=== PATIENT | male | born 1945 | race Caucasian/White ===

== ENCOUNTER 2017-01-02 18:49 | Inpatient (IN) ==
[2017-01-02] MEDS ORDERED: Acetaminophen 325 MG TABLET PO PRN (23:12)
[2017-01-02] MEDS ORDERED: Naloxone 0.4 MG/ML INJ IVP PRN (23:27)
--- NOTE | 2017-01-02 23:37 | Internal Med History&Physical ---
<Cordell Nair - Last Filed: 01/03/17 00:35> Date of Encounter: 01/03/17 Time of Encounter: 23:37 Assessment and Plan (1) Encephalopathy acute Current visit: Yes Status: Acute Appears to have hepatic encephalopathy.Was recently admitted to [facility]. Lab work from [place] does not reveal any transaminitis, total bili , conjugated bili and unconjugated bili unremarkable, ammonia 45. CBC and CMP both unremarkable. The patient appears to be in encephalopathic state as he is obtunded and minimally responsive to painful stimuli. Repeat CMP, get an additional ammonia level and lactic acid. Stat ABG Stat blood glucose Every 6 Accu-Cheks Stat TSH Stat urine tox screen, urine tox screen artery obtained and also [place] only revealing TCAs Stat ammonia Stat CBC and CMP, stat CPK Stat Lactic acid Stat serum alcohol Continuous telemetry We will hold all by mouth meds for now, change Synthroid and Lasix to IV doses (2) Cirrhosis of liver Current visit: Yes Status: Acute Reported history of cirrhosis. Was recently admitted to [facility]. Lab work from [place] does not reveal any transaminitis, total bili , conjugated bili and unconjugated bili unremarkable, ammonia 45. He does not appear jaundiced, no obvious hepatomegaly. The patient appears to be in encephalopathic state as he is obtunded and minimally responsive to painful stimuli. Repeat CMP, get an additional ammonia level and lactic acid. Qualifiers: Hepatic cirrhosis type: unspecified hepatic cirrhosis Ascites presence: without ascites Qualified Code(s): K74.60 - Unspecified cirrhosis of liver (3) Thrombocytopenia Current visit: Yes Status: Acute Likely caused by cirrhosis. No bleeding or petechial hemorrhaging noted. CBC in the morning (4) Dementia Current visit: Yes Status: Acute Baseline dementia with confusion, patient continues to have mental decline as per report. Consult neurology for further workup and evaluation. Dayshift team to call neurology Qualifiers: Alzheimer's disease onset: unspecified onset Dementia behavioral disturbance: with behavioral disturbance Qualified Code(s): G30.8 - Other Alzheimer's disease; F02.81 - Dementia in other diseases classified elsewhere with behavioral disturbance; F02.81 - Dementia in other diseases classified elsewhere with behavioral disturbance; F02.81 - Dementia in other diseases classified elsewhere with behavioral disturbance (5) Diabetes mellitus Current visit: Yes Status: Chronic History of type 2 diabetes, it is unknown whether or not he is controlled. Takes metformin at home will hold for now due to decreased level of consciousness. I will hold sliding scale insulin coverage as the patient is nothing by mouth. Q6 hour Accu-Cheks while nothing by mouth Qualifiers: Diabetes mellitus type: type 2 Diabetes mellitus complication status: without complication Diabetes mellitus fci insulin use: without fci use Qualified Code(s): E11.9 - Type 2 diabetes mellitus without complications (6) HTN (hypertension) Current visit: Yes Status: Acute history of HTN, BP stable at this time. Will hold BB d/t sinus bradycardia. Qualifiers: Hypertension type: essential hypertension Qualified Code(s): I10 - Essential (primary) hypertension (7) Hypothyroidism Current visit: Yes Status: Acute New patient no prior visits to [facility] so there is no prior records for review. TSH obtained and was WNL at 1.790. Since the patient is somnolent I will change his synthroid to IV. Qualifiers: Hypothyroidism type: unspecified Qualified Code(s): E03.9 - Hypothyroidism , unspecified (8) DVT prophylaxis Current visit: Yes Status: Acute Mechanical sequential compression devices, on starting subcutaneous heparin or Lovenox the patient is thrombocytopenic Internal Medicine - H&P: HPI Chief complaint: AMS, dementia, decreased LOC Admitted From: Home Plans for Post Hospital Care: Home History of present illness: Mr. Duran is a 71 year old male with a past medical history of dementia, HTN, COPD, DM II, who presents today [facility] with acute mental status change and decreased level of consciousness. The patient was recently admitted and treated at [facility] for hepatic encephalopathy and cirrhosis. Patient is obtunded and there is no family present at bedside. All information obtained from chart review and RN report. The patient has baseline dementia, his awoke this morning and found furniture scattered throughout the house and patient missing. She found him outside sleeping on the porch. Upon arrival to [facility] ED it was reported to the RN that the patient was alert and oriented. However, at some time throughout the stay he became agitated and combative. He was given 2mg Ativan and sent to [facility]. Workup from [facility] included CT of head which found moderate generalized cerebral and cerebellar atrophy, and complete opacification of right maxillary sinus suspicious for fungal infection. Because the patient was found down a CT of the C-spine was obtained and no fractures were noted. X-ray pelvis and x- ray of left elbow obtained noting no fractures. Chest X-ray negative for acute findings. He is being admitted for further monitoring and evaluation. Past Med Surg Social Fam HX - Past Medical History Psychiatric history: PTSD - Social History Smoking Status: Current every day smoker Alcohol use: none Drug use: none - Family History Mother Adopted: No Twin of Family Member: Yes, Fraternal Living Status: Age at : 89 Cause of : alzhemiers Hx Family Cardiac Disorders: Yes (bipass, stents) Hx Family Respiratory Disorders: No Hx Family Cancer: Yes (breast,) Hx Family GI Disorders: No Hx Family Genitourinary Disorders: No Hx Family Endocrine Disorder: No Hx Family Musculoskeletal Disorders: No Hx Family Neuromuscular Disorders: No Hx Family Neurologic Disorders: No Hx Family HEENT Disorders: No Hx Family Autoimmune Disorders: No Hx Family Reproductive Disorders: No Hx Family Psychosocial Disorders: No Hx Family Medical Disorders: No Internal Medicine - H&P: Meds Acetaminophen [Tylenol] 650 mg PO TID PRN 01/02/17 [History] Baclofen [Lioresal] 10 mg PO TID PRN 01/02/17 [History] Dicyclomine [Bentyl] 20 mg PO TID PRN 01/02/17 [History] Doxazosin [Cardura] 1 mg PO HS 01/02/17 [History] Ferrous Sulfate [Iron] 325 mg PO BID 01/02/17 [History] Finasteride [Proscar] 20 mg PO DAILY 01/02/17 [History] Furosemide [Lasix] 20 mg PO DAILY 01/02/17 [History] Gabapentin [Neurontin] 1,200 mg PO TID 01/02/17 [History] Gemfibrozil [Lopid] 600 mg PO BIDWM 01/02/17 [History] Levothyroxine [Synthroid] 0.05 mg PO 01/02/17 [History] Magnesium Oxide [Magnesium] 400 mg PO BID 01/02/17 [History] Metformin HCl [Fortamet] 500 mg PO DAILY 01/02/17 [History] OLANZapine [Zyprexa] 2.5 mg PO DAILY 01/02/17 [History] Pantoprazole Sodium [Protonix] 20 mg PO DAILY 01/02/17 [History] Peg 400/Hypromellose/Glycerin [Visine Tired Eye Relief Drop] 15 ml OP TID [History] Propranolol HCl 20 mg PO TID 01/02/17 [History] Ranitidine HCl [Acid Field Map Technician] 150 mg PO BID 01/02/17 [History] 3 Allergy/AdvReac Type Severity Reaction Status Date / Time amitriptyline Allergy Hallucinati Verified 01/02/17 22:49 ng citalopram Allergy Hallucinati Verified 01/02/17 22:49 ng fluoxetine Allergy Hallucinati Verified 01/02/17 22:49 ng morphine Allergy Hallucinati Verified 01/02/17 22:49 ng ROS unobtainable: due to mental status All Systems PM: A 10-system review of systems was performed and is negative for pertinent findings except as documented above in the HPI. - Constitutional Vitals: Temp Pulse Resp BP Pulse Ox 98.0 F 52 18 129/78 100 01/02/17 21:17 01/02/17 21:17 01/02/17 21:17 01/02/17 21:17 01/02/17 21:17 Exam: The patient is obtunded - Head Head exam: Present: atraumatic, normocephalic - Eye Eye exam: Present: PERRL, conjuntiva pink, sclera anicteric. Absent: periorbital swelling, periorbital tenderness Pupils: Present: PERRL - Neck Neck exam general surgery: Present: supple, trachea midline. Absent: lymphadenopathy - Respiratory Respiratory exam: Present: CTAB. Absent: accessory muscle use, rales, rhonchi, wheezes - Cardiovascular Cardiovascular exam: Present: RRR, +S1, +S2. Absent: diastolic murmur, gallop, rubs, systolic murmur - GI/Abdominal GI/Abdominal exam: Present: soft, tenderness (Mild tenderness to RUQ, patient whinces to pain.). Absent: distended, firm, guarding - Extremities Exam Extremities exam: Present: warm, radial pulses palpable and symmetrical. Absent : calf tenderness, cyanotic, pedal edema - Neurological Exam Neurological exam: Present: altered - Expanded Neurological Exam Neurological exam expanded: Present: protecting the airway Patient oriented to: Absent: person, place, time Cranial Nerves: tongue deviation PM: Normal Coma Scale Eye Opening: None Coma Scale Motor Response: Localizes to Pain Coma Scale Verbal Response: Incomprehensible Coma Scale Total: 8 - Skin Skin exam: Present: abrasion (to left knee.), dry Internal Med - H&P Results - Diagnostic Studies CT scan - head Additional comments: CT head from ulcer reveals moderate generalized cerebral and cerebellar atrophy. CT C spine no fractures Other Images Additional comments: X-ray pelvis and left elbow negative for fractures <Fco Boswell - Last Filed: 01/03/17 05:05> Date of Encounter: 01/03/17 Time of Encounter: 03:20 ROS unobtainable: due to mental status (unable to obtain) - Constitutional Vitals: Temp Pulse Resp BP Pulse Ox 97.9 F 54 16 94/60 98 01/03/17 04:20 01/03/17 04:20 01/03/17 04:20 01/03/17 04:20 01/03/17 00:30 Exam: On my exam, patient responds to loud verbal and painful stimuli appropriately. He drifts off to sleep thereafter, but he pushes me away with painful stimuli. - Head Head exam: Present: atraumatic - Expanded Head Exam Head exam expanded: Absent: abrasion, contusion, general tenderness - Eye Eye exam: Present: PERRL. Absent: scleral icterus - ENT ENT exam: Present: mucous membranes dry, normal exam - Neck Neck exam general surgery: Present: supple. Absent: tenderness - Respiratory Respiratory exam: Present: CTAB - Cardiovascular Cardiovascular exam: Present: RRR, +S1, +S2 - GI/Abdominal GI/Abdominal exam: Present: normal bowel sounds, soft. Absent: hepatomegaly, mass, splenomegaly, tenderness - Extremities Exam Extremities exam: Present: warm. Absent: calf tenderness, pedal edema, tenderness - Back Exam Back exam: Absent: CVA tenderness (L), CVA tenderness (R) - Neurological Exam Neurological exam: Present: altered Additional comments: somnolent but arousable to pain and loud stimuli - Skin Skin exam: Present: dry, warm. Absent: rash Internal Med - H&P Results - Labs CBC & Chem 7: 01/03/17 00:31 01/03/17 00:31 Labs: Short CBC 01/03/17 Range/Units 00:31 WBC 5.2 (4.3-11.1) K/mcL Hgb 11.5 L (12.9-16.9) g/dL Hct 34.1 L (37.5-50.1) % Plt Count 68 L (140-400) K/mcL Neutrophils # 3.2 (1.6-8.9) K/mcL BMP 01/03/17 00:31 Sodium 144 Potassium 4.1 Chloride 113 H Carbon Dioxide 21 BUN 17 Creatinine 1.01 Glucose 108 H Calcium 8.8 Liver Function 01/03/17 Range/Units 00:31 Total Bilirubin 0.9 (0.2-1.2) mg/dL AST 14 (5-34) Units/L ALT 6 (0-55) Units/L Alkaline Phosphatase 71 (38-126) Units/L Albumin 2.9 L (3.5-5.0) g/dL - ABG Interpretation ABG results: 01/02/17 23:50 ABG pH 7.35 ABG pCO2 42 ABG pO2 109 H ABG HCO3 23 ABG Total CO2 24 ABG O2 Saturation 98 ABG Base Excess -3 L - Attending Attestation I discussed the patient NINILCHIK, PMH, ROS, lab data, and exam findings with Cordell Nair CNP. I reviewed the CT report with him and [facility] records as well. Patient has never been here before, and we have no old records. His is not present and I'm unable to obtain any history from patient. He does respond appropriately to loud and painful stimuli. He is not jaundiced. I was informed also that patient received a dose of Ativan prior to transfer from [facility]. He has stable vitals and glucose reading. We will try to obtain a urine sample for U/A, culture, and toxicity screen. We will minimize his mind altering medications and follow him closely. He does not appear to be infected at this time, unless his urinalysis reveals pertinent findings. Urine yet to be collected, however. Patient may need further imaging and/or work-up once his is available to discuss further. Other than my comments above and noted exam findings, I agree with Cordell's assessment and plan.
[2017-01-02 23:54] LABS: ABG Base Excess -3 mEq/L (-2 to 3); ABG HCO3 23 mEq/L (21-27); ABG Oxygen Saturation 98 % (95-98); ABG PCO2 42 mmHg (35-45); ABG PH 7.35 pH Units (7.32-7.45); ABG PO2 109 mmHg (85-104); ABG TCO2 24 mEq/L (20-26)
--- NOTE | 2017-01-03 00:39 | Event Note ---
Date of Encounter: 01/03/17 Time of Encounter: 00:39 No need to consult neurology, order discontinued
[2017-01-03 00:42] LABS: Basophils % 0.8 %; Eosinophils # 0.1 K/mcL (0.0-0.6); Eosinophils % 1.2 %; Hematocrit 34.1 % (37.5-50.1); Hemoglobin 11.5 g/dL (12.9-16.9); Immature Granulocytes % 0.2 % (0-4); Immature Platelets 5.7 % (1.1-6.1); Lymphocytes # 1.3 K/mcL (0.6-4.6); Lymphocytes % 25.6 %; Mean Corpuscular HGB Conc 33.7 g/dL (31.6-35.5); Mean Corpuscular Hemoglobin 33.4 pg (28.0-33.3); Mean Corpuscular Volume 99.1 fL (83.0-100.0); Mean Platelet Volume 10.4 fL (9.4-12.4); Monocytes # 0.6 K/mcL (0.0-1.3); Monocytes % 11.3 %; Red Blood Count 3.44 M/mcL (4.19-5.50); Red Cell Distribution Width 13.1 % (11.5-14.5); Segmented Neutrophils % 60.9 %
[2017-01-03 00:44] LABS: Neutrophils # 3.2 K/mcL (1.6-8.9); Platelet Count 68 K/mcL (140-400)
[2017-01-03 00:53] LABS: Magnesium 1.8 mg/dL (1.6-2.6)
[2017-01-03 00:57] LABS: Alanine Aminotransferase 6 Units/L (0-55); Albumin 2.9 g/dL (3.5-5.0); Albumin/Globulin Ratio 0.9 (1.1-2.2); Alkaline Phosphatase 71 Units/L (38-126); Aspartate Amino Transferase 14 Units/L (5-34); BUN/Creatinine Ratio 17 (6-26); Bilirubin,Total 0.9 mg/dL (0.2-1.2); Blood Urea Nitrogen 17 mg/dL (8-26); Calcium 8.8 mg/dL (8.6-10.8); Carbon Dioxide 21 mEq/L (19-29); Chloride 113 mEq/L (98-109); Creatine Kinase 112 Units/L (30-200); Globulin 3.3 g/dL (2.4-3.5); Glucose 108 mg/dL (70-99); Osmolality,Calculated 300 (280-300); Potassium 4.1 mEq/L (3.5-4.5); Sodium 144 mEq/L (136-145); Total Protein 6.2 g/dL (6.0-8.3); eGFR For African Americans > 60 (> 60); eGFR For Non-African Americans > 60 (> 60)
[2017-01-03 01:12] LABS: Platelet Estimate Decreased (Normal)
[2017-01-03 01:30] LABS: Ethanol < 10 mg/dL (0-10)
[2017-01-03] MEDS ORDERED: Levothyroxine Sodium 100 MCG VIAL IVP SCH (06:30)
[2017-01-03 08:21] LABS: Basophils % 0.8 %; Eosinophils # 0.1 K/mcL (0.0-0.6); Hematocrit 33.5 % (37.5-50.1); Hemoglobin 11.5 g/dL (12.9-16.9); Immature Granulocytes % 0.4 % (0-4); Lymphocytes # 1.2 K/mcL (0.6-4.6); Lymphocytes % 23.7 %; Mean Corpuscular HGB Conc 34.3 g/dL (31.6-35.5); Mean Corpuscular Hemoglobin 34.3 pg (28.0-33.3); Mean Platelet Volume 11.2 fL (9.4-12.4); Monocytes # 0.4 K/mcL (0.0-1.3); Monocytes % 8.8 %; Neutrophils # 3.2 K/mcL (1.6-8.9); Red Blood Count 3.35 M/mcL (4.19-5.50); Red Cell Distribution Width 13.2 % (11.5-14.5); Segmented Neutrophils % 65.3 %
[2017-01-03 08:22] LABS: Platelet Count 67 K/mcL (140-400)
[2017-01-03 08:23] LABS: BUN/Creatinine Ratio 18 (6-26); Blood Urea Nitrogen 15 mg/dL (8-26); Calcium 8.8 mg/dL (8.6-10.8); Carbon Dioxide 23 mEq/L (19-29); Chloride 113 mEq/L (98-109); Glucose 108 mg/dL (70-99); Osmolality,Calculated 293 (280-300); Potassium 4.1 mEq/L (3.5-4.5); Sodium 141 mEq/L (136-145); eGFR For African Americans > 60 (> 60); eGFR For Non-African Americans > 60 (> 60)
[2017-01-03] MEDS ORDERED: Furosemide 20 MG/2 ML VIAL IVP SCH (09:00)
[2017-01-03 11:13] LABS: Bilirubin,Urine Negative (Negative); Blood,Urine Small (Negative); Clarity,Urine Clear (Clear); Color,Urine Yellow (Yellow); Glucose,Urine (UA) Normal (Normal); Ketones,Urine Negative (Negative); Leukocyte Esterase,Urine Negative (Negative); Nitrite,Urine Negative (Negative); Protein,Urine Negative (Neg-Trace); Urobilinogen,Urine Normal (Normal)
[2017-01-03 11:14] LABS: Bacteria,Urine None Seen per hpf (None-Few); Hyaline Casts,Urine None Seen per lpf (None-Few); Squamous Epithelial Cell,Urine Few per lpf (None-Few); WBC,Urine 0-3 per hpf (0-3)
[2017-01-03 11:24] LABS: Amphetamine Screen,Urine Negative ng/mL (Cutoff=1000); Barbiturate Screen,Urine Negative ng/mL (Cutoff=200); Benzodiazepines Screen,Urine Negative ng/mL (Cutoff=200); Cannabinoid Screen,Urine Negative ng/mL (Cutoff = 50); Cocaine Screen,Urine Negative ng/mL (Cutoff= 300); Opiate Screen,Urine Negative ng/mL (Cutoff=300); Phencyclidine Screen,Urine Negative ng/mL (Cutoff=25)
[2017-01-03] MEDS: *HR* LORazepam 2 MG/ML VIAL IVP PRN ×2 (11:29→20:42)
[2017-01-03] MEDS ORDERED: Baclofen 10 MG TABLET PO PRN (14:38)
--- NOTE | 2017-01-03 14:44 | Internal Med Progress Note ---
Date of Encounter: 01/03/17 Time of Encounter: 14:41 - Assessment and plan (1) Encephalopathy acute Current Visit: Yes Status: Acute Assessment and plan: Consider possible concussion versus worsening dementia, recently treated for hepatic encephalopathy due to cirrhosis Use low dose of lactulose as the patient apparently has chronic diarrhea from short bowel Decrease dose of gabapentin Fall precautions, will probably need to go or rehabilitation [facility] (2) Right maxillary sinusitis Current Visit: Yes Status: Acute Assessment and plan: CT scan from also reported: moderate generalized cerebral and cerebellar atrophy , and complete opacification of right maxillary sinus suspicious for fungal infection. ENT consult Consider voriconazole versus other antifungal if this is confirmed, although the family says that he had an accident in the past and has had multiple abnormal CT scans showing something similar (3) Thrombocytopenia Current Visit: Yes Status: Acute Assessment and plan: Secondary to cirrhosis (4) Cirrhosis of liver Current Visit: Yes Status: Acute Qualifiers: Hepatic cirrhosis type: unspecified hepatic cirrhosis Ascites presence: without ascites Qualified Code(s): K74.60 - Unspecified cirrhosis of liver (5) Dementia Current Visit: Yes Status: Acute Qualifiers: Alzheimer's disease onset: unspecified onset Dementia behavioral disturbance: with behavioral disturbance Qualified Code(s): G30.8 - Other Alzheimer's disease; F02.81 - Dementia in other diseases classified elsewhere with behavioral disturbance; F02.81 - Dementia in other diseases classified elsewhere with behavioral disturbance; F02.81 - Dementia in other diseases classified elsewhere with behavioral disturbance (6) Diabetes mellitus Current Visit: Yes Status: Chronic Assessment and plan: Use insulin sliding scale Qualifiers: Diabetes mellitus type: type 2 Diabetes mellitus complication status: without complication Diabetes mellitus exterminator termite insulin use: without exterminator termite use Qualified Code(s): E11.9 - Type 2 diabetes mellitus without complications (7) HTN (hypertension) Current Visit: Yes Status: Acute Assessment and plan: Stable Continue Cardura Qualifiers: Hypertension type: essential hypertension Qualified Code(s): I10 - Essential (primary) hypertension (8) Hypothyroidism Current Visit: Yes Status: Acute Assessment and plan: Continue Synthroid Qualifiers: Hypothyroidism type: unspecified Qualified Code(s): E03.9 - Hypothyroidism , unspecified - Subjective Interval history: Very confused, oriented in person only, denies pain, unable to complete review of systems due to patient's mental status - Constitutional Vitals: Temp Pulse Resp BP Pulse Ox 97.2 F L 62 18 127/67 94 01/03/17 11:14 01/03/17 11:14 01/03/17 11:14 01/03/17 11:14 01/03/17 11:14 General appearance: Present: A&O X 1, disheveled - Head Head exam: Present: atraumatic, normocephalic - Eye Eye exam: Present: PERRL, conjuntiva pink, sclera anicteric Pupils: Present: PERRL - Neck Neck exam general surgery: Present: supple, trachea midline. Absent: lymphadenopathy - Respiratory Respiratory exam: Present: decreased breath sounds (Very diminished breath sounds), CTAB. Absent: accessory muscle use, rales, rhonchi, wheezes - Cardiovascular Cardiovascular exam: Present: RRR, +S1, +S2. Absent: diastolic murmur, gallop, rubs, systolic murmur - GI/Abdominal GI/Abdominal exam: Present: normal bowel sounds, soft, no peritoneal signs. Absent: distended, tenderness - Extremities Exam Extremities exam: Present: warm, radial pulses palpable and symmetrical. Absent : calf tenderness, cyanotic, pedal edema - Neurological Exam Neurological exam: Present: CN II-XII intact, no focal deficits. Absent: oriented X3, pronater drift, facial droop, speech deficit - Skin Skin exam: Present: dry, intact Internal Medicine: Result - Labs CBC & Chem 7: 01/03/17 07:57 01/03/17 07:57 Labs: Short CBC 01/03/17 01/03/17 Range/Units 00:31 07:57 WBC 5.2 4.9 (4.3-11.1) K/mcL Hgb 11.5 L 11.5 L (12.9-16.9) g/dL Hct 34.1 L 33.5 L (37.5-50.1) % Plt Count 68 L 67 L (140-400) K/mcL Neutrophils # 3.2 3.2 (1.6-8.9) K/mcL BMP 01/03/17 01/03/17 00:31 07:57 Sodium 144 141 Potassium 4.1 4.1 Chloride 113 H 113 H Carbon Dioxide 21 23 BUN 17 15 Creatinine 1.01 0.85 Glucose 108 H 108 H Calcium 8.8 8.8 Liver Function 01/03/17 Range/Units 00:31 Total Bilirubin 0.9 (0.2-1.2) mg/dL AST 14 (5-34) Units/L ALT 6 (0-55) Units/L Alkaline Phosphatase 71 (38-126) Units/L Albumin 2.9 L (3.5-5.0) g/dL Urine 01/03/17 Range/Units 11:05 Urine Color Yellow (Yellow) Urine Clarity Clear (Clear) Urine pH 7.0 (5.0-8.0) pH Units Ur Specific [place] 1.010 (1.010-1.025) Urine Protein Negative (Neg-Trace) mg/dL Urine Glucose (UA) Normal (Normal) mg/dL - ABG Interpretation ABG results: ABG ABG pH 7.35 pH Units (7.32-7.45) 01/02/17 23:50 ABG pCO2 42 mmHg (35-45) 01/02/17 23:50 ABG pO2 109 mmHg (85-104) H 01/02/17 23:50 ABG O2 Saturation 98 % (95-98) 01/02/17 23:50 Consult Discharge Plan - Plan Referrals: Fran Montero [Primary Care Provider] -
[2017-01-03] MEDS ORDERED: Dextrose Gel 15 GM PO PRN ×2 (14:46)
[2017-01-03] MEDS ORDERED: D5% in Water 1,000 ML IVC PRN (14:46)
[2017-01-03] MEDS ORDERED: *HR* Dextrose 50 % in Water (Syg) 50 ML SYRINGE IVP PRN (14:46)
[2017-01-03] MEDS ORDERED: Lactulose Oral Soln 20 GM/30 ML UDC PO SCH (15:00)
[2017-01-03] MEDS: Sucralfate 1 GM TABLET PO SCH ×2 (15:50→20:29)
[2017-01-03] MEDS: Gabapentin 300 MG CAPSULE PO SCH ×2 (15:50→20:29)
[2017-01-03] MEDS: Insulin LISPRO 300 UNITS/3 ML VIAL SQ SCH ×2 (17:24→20:17)
--- NOTE | 2017-01-03 19:07 | ENT - Consult Note ---
Date of Encounter: 01/03/17 Time of Encounter: 19:04 Assessment and Plan (1) Sinusitis Current Visit: Yes Status: Chronic I reviewed the CT from today which demonstrates complete opacification of the right maxillary sinus with some spots of calcification. There is no bone erosion and no presence of mass in the nose itself. As the patient is asymptomatic and there does not appear to be bone erosion will try a bedside endoscopy on Thursday and develop a plan. Qualifiers: Sinusitis location: maxillary Chronicity: chronic Qualified Code(s): J32.0 - Chronic maxillary sinusitis History of Present Illness Consult date: 01/03/17 Reason for ENT Consult: other (maxillary sinus opacification, 71 yo male transferred from another facility with hepatic encephalopathy. There was a note in the transfer records about an opacified right maxillary sinus. The original CT was not available and it was repeated today at [place]. The patient offers no sinus, nose or facial complaints ) Past Med Surg Social Fam HX - Past Medical History Psychiatric history: PTSD - Social History Smoking Status: Current every day smoker Alcohol use: none Drug use: none - Family History Mother Adopted: No Twin of Family Member: Yes, Fraternal Living Status: Age at : 90 Cause of : alzhemiers Hx Family Cardiac Disorders: Yes (bipass, stents) Hx Family Respiratory Disorders: No Hx Family Cancer: Yes (breast,) Hx Family GI Disorders: No Hx Family Genitourinary Disorders: No Hx Family Endocrine Disorder: No Hx Family Musculoskeletal Disorders: No Hx Family Neuromuscular Disorders: No Hx Family Neurologic Disorders: No Hx Family HEENT Disorders: No Hx Family Autoimmune Disorders: No Hx Family Reproductive Disorders: No Hx Family Psychosocial Disorders: No Hx Family Medical Disorders: No Medications and Allergies Acetaminophen [Tylenol] 650 mg PO TID PRN 01/02/17 [History] Baclofen [Lioresal] 10 mg PO TID PRN 01/02/17 [History] Dicyclomine [Bentyl] 20 mg PO TID PRN 01/02/17 [History] Doxazosin [Cardura] 1 mg PO HS 01/02/17 [History] Ferrous Sulfate [Iron] 325 mg PO BID 01/02/17 [History] Finasteride [Proscar] 20 mg PO DAILY 01/02/17 [History] Furosemide [Lasix] 20 mg PO DAILY 01/02/17 [History] Gabapentin [Neurontin] 1,200 mg PO TID 01/02/17 [History] Gemfibrozil [Lopid] 600 mg PO BIDWM 01/02/17 [History] Magnesium Oxide [Magnesium] 800 mg PO BID 01/02/17 [History] Metformin HCl [Fortamet] 500 mg PO DAILY 01/02/17 [History] OLANZapine [Zyprexa] 5 mg PO HS 01/02/17 [History] Pantoprazole Sodium [Protonix] 20 mg PO DAILY 01/02/17 [History] Peg 400/Hypromellose/Glycerin [Visine Tired Eye Relief Drop] 15 ml OP TID [History] Propranolol HCl 20 mg PO TID 01/02/17 [History] Ranitidine HCl [Acid Bag Machine Operator Helper] 150 mg PO BID 01/02/17 [History] Levothyroxine Sodium [Levoxyl] 50 mcg PO DAILY 01/03/17 [History] Sucralfate [Carafate] 1 gm PO QIDAC 01/03/17 [History] Topiramate [Topamax] 25 mg PO HS 01/03/17 [History] 3 Allergy/AdvReac Type Severity Reaction Status Date / Time amitriptyline Allergy Drowsy Verified 01/03/17 09:35 citalopram Allergy Hallucinati Verified 01/02/17 22:49 ng fluoxetine Allergy Hallucinati Verified 01/02/17 22:49 ng morphine AdvReac nausea/vomi Verified 01/03/17 09:33 ting primidone AdvReac Nausea Verified 01/03/17 09:35 tramadol AdvReac Drowsy Verified 01/03/17 09:33 Zolpidem AdvReac Hallucinati Verified 01/03/17 09:35 ng ENT Exam Initial Vital Signs Temp Pulse Resp BP Pulse Ox 98.0 F 52 18 129/78 100 01/02/17 21:17 01/02/17 21:17 01/02/17 21:17 01/02/17 21:17 01/02/17 21:17 - General physical appearance well nourished, no distress - ENT no congestion (grossly normal anterior nose) Exam Initial Vital Signs Temp Pulse Resp BP Pulse Ox 98.0 F 52 18 129/78 100 01/02/17 21:17 01/02/17 21:17 01/02/17 21:17 01/02/17 21:17 01/02/17 21:17 Results - Labs 01/03/17 07:57 01/03/17 07:57 Abnormal lab results RBC 3.35 M/mcL (4.19-5.50) L 01/03/17 07:57 Hgb 11.5 g/dL (12.9-16.9) L 01/03/17 07:57 Hct 33.5 % (37.5-50.1) L 01/03/17 07:57 MCH 34.3 pg (28.0-33.3) H 01/03/17 07:57 Plt Count 67 K/mcL (140-400) L 01/03/17 07:57 Platelet Estimate Decreased (Normal) L 01/03/17 00:31 ABG pO2 109 mmHg (85-104) H 01/02/17 23:50 ABG Base Excess -3 mEq/L (-2 to 3) L 01/02/17 23:50 Chloride 113 mEq/L (98-109) H 01/03/17 07:57 Glucose 108 mg/dL (70-99) H 01/03/17 07:57 POC Glucose 125 (58-89) H 01/03/17 11:12 Albumin 2.9 g/dL (3.5-5.0) L 01/03/17 00:31 Albumin/Globulin Ratio 0.9 (1.1-2.2) L 01/03/17 00:31 Urine Blood Small (Negative) H 01/03/17 11:05 Urine Microscopic RBC 5-15 per hpf (0-3) H 01/03/17 11:05 Diabetes panel 01/03/17 01/03/17 Range/Units 00:31 07:57 Sodium 144 141 (136-145) mEq/L Potassium 4.1 4.1 (3.5-4.5) mEq/L Chloride 113 H 113 H (98-109) mEq/L Carbon Dioxide 21 23 (19-29) mEq/L BUN 17 15 (8-26) mg/dL Creatinine 1.01 0.85 (0.72-1.25) mg/dL Glucose 108 H 108 H (70-99) mg/dL Calcium 8.8 8.8 (8.6-10.8) mg/dL AST 14 (5-34) Units/L ALT 6 (0-55) Units/L Alkaline Phosphatase 71 (38-126) Units/L Albumin 2.9 L (3.5-5.0) g/dL Thyroid panel 01/02/17 Range/Units 23:13 TSH 1.790 (0.350-4.840) mcIU/mL Calcium panel 01/03/17 01/03/17 01/03/17 Range/Units 00:31 00:31 07:57 Calcium 8.8 8.8 (8.6-10.8) mg/dL Phosphorus 3.0 (2.3-4.7) mg/dL Albumin 2.9 L (3.5-5.0) g/dL Pituitary panel 01/02/17 01/03/17 01/03/17 Range/Units 23:13 00:31 07:57 Sodium 144 141 (136-145) mEq/L Potassium 4.1 4.1 (3.5-4.5) mEq/L Chloride 113 H 113 H (98-109) mEq/L Carbon Dioxide 21 23 (19-29) mEq/L BUN 17 15 (8-26) mg/dL Creatinine 1.01 0.85 (0.72-1.25) mg/dL Glucose 108 H 108 H (70-99) mg/dL Calcium 8.8 8.8 (8.6-10.8) mg/dL TSH 1.790 (0.350-4.840) mcIU/mL Adrenal panel 01/03/17 01/03/17 Range/Units 00:31 07:57 Sodium 144 141 (136-145) mEq/L Potassium 4.1 4.1 (3.5-4.5) mEq/L Chloride 113 H 113 H (98-109) mEq/L Carbon Dioxide 21 23 (19-29) mEq/L BUN 17 15 (8-26) mg/dL Creatinine 1.01 0.85 (0.72-1.25) mg/dL Glucose 108 H 108 H (70-99) mg/dL Calcium 8.8 8.8 (8.6-10.8) mg/dL Total Bilirubin 0.9 (0.2-1.2) mg/dL AST 14 (5-34) Units/L ALT 6 (0-55) Units/L Alkaline Phosphatase 71 (38-126) Units/L Albumin 2.9 L (3.5-5.0) g/dL All other labs normal. Consult Discharge Plan - Plan Referrals: Fran Montero [Primary Care Provider] -
[2017-01-03] MEDS: Topiramate 25 MG TABLET PO SCH (20:29)
[2017-01-03] MEDS: OLANZapine 5 MG TAB.RAPDIS PO SCH (20:29)
[2017-01-03] MEDS: Magnesium Oxide 400 MG TABLET PO SCH (20:29)
[2017-01-03] MEDS: Lactulose Oral Soln 20 GM/30 ML UDC PO SCH (20:30)
[2017-01-03] MEDS ORDERED: Haloperidol Lactate 5 MG/ML VIAL IM ONE (20:50)
[2017-01-03] MEDS ORDERED: Haloperidol Lactate 5 MG/ML VIAL ONE (20:55)
[2017-01-04] MEDS ORDERED: Haloperidol Lactate 5 MG/ML VIAL ONE (03:15)
[2017-01-04] MEDS ORDERED: Haloperidol Lactate 5 MG/ML VIAL IM ONE (03:19)
[2017-01-04 07:34] LABS: Hemoglobin 11.9 g/dL (12.9-16.9)
[2017-01-04 07:36] LABS: Hematocrit 34.3 % (37.5-50.1); Immature Platelets 5.7 % (1.1-6.1); Mean Corpuscular HGB Conc 34.7 g/dL (31.6-35.5); Mean Corpuscular Hemoglobin 33.7 pg (28.0-33.3); Mean Corpuscular Volume 97.2 fL (83.0-100.0); Mean Platelet Volume 10.8 fL (9.4-12.4); Red Blood Count 3.53 M/mcL (4.19-5.50)
[2017-01-04 08:04] LABS: BUN/Creatinine Ratio 18 (6-26); Blood Urea Nitrogen 18 mg/dL (8-26); Calcium 9.1 mg/dL (8.6-10.8); Carbon Dioxide 22 mEq/L (19-29); Chloride 109 mEq/L (98-109); Glucose 106 mg/dL (70-99); Osmolality,Calculated 294 (280-300); Potassium 3.7 mEq/L (3.5-4.5); Sodium 141 mEq/L (136-145); eGFR For African Americans > 60 (> 60); eGFR For Non-African Americans > 60 (> 60)
[2017-01-04] MEDS: Insulin LISPRO 300 UNITS/3 ML VIAL SQ SCH ×4 (08:42→22:45)
[2017-01-04] MEDS: Lactulose Oral Soln 20 GM/30 ML UDC PO SCH (09:28)
[2017-01-04] MEDS: Gabapentin 300 MG CAPSULE PO SCH ×3 (09:29→22:45)
[2017-01-04] MEDS: Finasteride 5 MG TABLET PO SCH (09:29)
[2017-01-04] MEDS: Sucralfate 1 GM TABLET PO SCH ×4 (09:29→22:45)
[2017-01-04] MEDS: Magnesium Oxide 400 MG TABLET PO SCH ×2 (09:29→22:45)
--- NOTE | 2017-01-04 09:55 | Internal Med Progress Note ---
Date of Encounter: 01/04/17 Time of Encounter: 09:52 - Assessment and plan (1) Encephalopathy acute Current Visit: Yes Status: Acute Assessment and plan: Consider possible concussion versus worsening dementia, recently treated for hepatic encephalopathy due to cirrhosis Use low dose of lactulose as the patient apparently has chronic diarrhea from short bowel Decreased dose of gabapentin Fall precautions, will probably need to go or rehabilitation [facility] (2) Right maxillary sinusitis Current Visit: Yes Status: Acute Assessment and plan: CT scan from [facility] reported: moderate generalized cerebral and cerebellar atrophy, and complete opacification of right maxillary sinus suspicious for fungal infection. No CT scan of the sinuses showed: chronic right maxillary sinusitis with partially calcified soft tissue raising the possibility of fungal infection. ENT consulted, to perform bedside endoscopy Tomorrow No voriconazole or other antifungal for now. (3) Thrombocytopenia Current Visit: Yes Status: Acute Assessment and plan: Secondary to cirrhosis (4) Cirrhosis of liver Current Visit: Yes Status: Acute Qualifiers: Hepatic cirrhosis type: unspecified hepatic cirrhosis Ascites presence: without ascites Qualified Code(s): K74.60 - Unspecified cirrhosis of liver (5) Dementia Current Visit: Yes Status: Acute Qualifiers: Alzheimer's disease onset: unspecified onset Dementia behavioral disturbance: with behavioral disturbance Qualified Code(s): G30.8 - Other Alzheimer's disease; F02.81 - Dementia in other diseases classified elsewhere with behavioral disturbance; F02.81 - Dementia in other diseases classified elsewhere with behavioral disturbance; F02.81 - Dementia in other diseases classified elsewhere with behavioral disturbance (6) Diabetes mellitus Current Visit: Yes Status: Chronic Assessment and plan: Use insulin sliding scale Qualifiers: Diabetes mellitus type: type 2 Diabetes mellitus complication status: without complication Diabetes mellitus local company intermodal truck driver insulin use: without mcfp use Qualified Code(s): E11.9 - Type 2 diabetes mellitus without complications (7) HTN (hypertension) Current Visit: Yes Status: Acute Assessment and plan: Stable Continue Cardura Qualifiers: Hypertension type: essential hypertension Qualified Code(s): I10 - Essential (primary) hypertension (8) Hypothyroidism Current Visit: Yes Status: Acute Assessment and plan: Continue Synthroid Qualifiers: Hypothyroidism type: unspecified Qualified Code(s): E03.9 - Hypothyroidism , unspecified - Subjective Interval history: Portal HTN, Ascites, Anemia, Cirrhosis, Pancreatitis, Small bowel obstruction, COPD, Diverticulitis, HTN, Agent [employer] exposure, Osteoarthritis, PTSD, diabetes (type II), hyperlipidemia, and hypothyroidism. Confused, oriented in person only, denies pain, unable to complete review of systems due to patient's mental status - Constitutional Vitals: Temp Pulse Resp BP Pulse Ox 98.3 F 67 16 124/85 92 01/04/17 07:47 01/04/17 07:47 01/04/17 07:47 01/04/17 07:47 01/04/17 07:47 General appearance: Present: A&O X 1, disheveled - Head Head exam: Present: atraumatic, normocephalic - Eye Eye exam: Present: PERRL, conjuntiva pink, sclera anicteric Pupils: Present: PERRL - Neck Neck exam general surgery: Present: supple, trachea midline. Absent: lymphadenopathy - Respiratory Respiratory exam: Present: CTAB. Absent: accessory muscle use, rales, rhonchi, wheezes - Cardiovascular Cardiovascular exam: Present: RRR, +S1, +S2. Absent: diastolic murmur, gallop, rubs, systolic murmur - GI/Abdominal GI/Abdominal exam: Present: normal bowel sounds, soft, no peritoneal signs. Absent: distended, tenderness - Extremities Exam Extremities exam: Present: warm, radial pulses palpable and symmetrical. Absent : calf tenderness, cyanotic, pedal edema - Neurological Exam Neurological exam: Present: CN II-XII intact, no focal deficits. Absent: oriented X3, pronater drift, facial droop, speech deficit - Skin Skin exam: Present: dry, intact Internal Medicine: Result - Labs CBC & Chem 7: 01/04/17 07:11 01/04/17 07:11 Labs: Short CBC 01/04/17 Range/Units 07:11 WBC 5.6 (4.3-11.1) K/mcL Hgb 11.9 L (12.9-16.9) g/dL Hct 34.3 L (37.5-50.1) % Plt Count 75 L (140-400) K/mcL BMP 01/04/17 07:11 Sodium 141 Potassium 3.7 Chloride 109 Carbon Dioxide 22 BUN 18 Creatinine 0.98 Glucose 106 H Calcium 9.1 Urine 01/03/17 Range/Units 11:05 Urine Color Yellow (Yellow) Urine Clarity Clear (Clear) Urine pH 7.0 (5.0-8.0) pH Units Ur Specific [place] 1.010 (1.010-1.025) Urine Protein Negative (Neg-Trace) mg/dL Urine Glucose (UA) Normal (Normal) mg/dL - ABG Interpretation ABG results: ABG ABG pH 7.35 pH Units (7.32-7.45) 01/02/17 23:50 ABG pCO2 42 mmHg (35-45) 01/02/17 23:50 ABG pO2 109 mmHg (85-104) H 01/02/17 23:50 ABG O2 Saturation 98 % (95-98) 01/02/17 23:50 - Impressions Impressions Sinuses CT 01/03/17 14:53 IMPRESSION: Findings of chronic right maxillary sinusitis with partially calcified soft tissue raising the possibility of fungal infection. D/ / Everton Rivera MD / Everton Rivera MD Interpreting Provider: Everton Rivera MD Consult Discharge Plan - Plan Referrals: Fran Montero [Primary Care Provider] -
[2017-01-04] MEDS: OLANZapine 5 MG TAB.RAPDIS PO SCH (22:44)
[2017-01-04] MEDS: Topiramate 25 MG TABLET PO SCH (22:45)
[2017-01-05] MEDS ORDERED: Lactulose Oral Soln 20 GM/30 ML UDC PO SCH (09:00)
[2017-01-05] MEDS: Insulin LISPRO 300 UNITS/3 ML VIAL SQ SCH ×2 (09:36→12:29)
--- NOTE | 2017-01-05 09:37 | Internal Med Progress Note ---
Date of Encounter: 01/05/17 Time of Encounter: 09:36 - Assessment and plan (1) Encephalopathy acute Current Visit: Yes Status: Acute Assessment and plan: Consider possible concussion versus worsening dementia, recently treated for hepatic encephalopathy due to cirrhosis Use low dose of lactulose as the patient apparently has chronic diarrhea from short bowel Decreased dose of gabapentin Fall precautions, will probably need to go or rehabilitation [facility] (2) Right maxillary sinusitis Current Visit: Yes Status: Acute Assessment and plan: CT scan from [facility] reported: moderate generalized cerebral and cerebellar atrophy, and complete opacification of right maxillary sinus suspicious for fungal infection. No CT scan of the sinuses showed: chronic right maxillary sinusitis with partially calcified soft tissue raising the possibility of fungal infection. ENT consulted, to perform bedside endoscopy today No voriconazole or other antifungal for now. (3) Thrombocytopenia Current Visit: Yes Status: Acute Assessment and plan: Secondary to cirrhosis (4) Cirrhosis of liver Current Visit: Yes Status: Acute Qualifiers: Hepatic cirrhosis type: unspecified hepatic cirrhosis Ascites presence: without ascites Qualified Code(s): K74.60 - Unspecified cirrhosis of liver (5) Dementia Current Visit: Yes Status: Acute Qualifiers: Alzheimer's disease onset: unspecified onset Dementia behavioral disturbance: with behavioral disturbance Qualified Code(s): G30.8 - Other Alzheimer's disease; F02.81 - Dementia in other diseases classified elsewhere with behavioral disturbance; F02.81 - Dementia in other diseases classified elsewhere with behavioral disturbance; F02.81 - Dementia in other diseases classified elsewhere with behavioral disturbance (6) Diabetes mellitus Current Visit: Yes Status: Chronic Assessment and plan: Use insulin sliding scale Qualifiers: Diabetes mellitus type: type 2 Diabetes mellitus complication status: without complication Diabetes mellitus intermediate insulin use: without intermediate use Qualified Code(s): E11.9 - Type 2 diabetes mellitus without complications (7) HTN (hypertension) Current Visit: Yes Status: Acute Assessment and plan: Stable Continue Cardura Qualifiers: Hypertension type: essential hypertension Qualified Code(s): I10 - Essential (primary) hypertension (8) Hypothyroidism Current Visit: Yes Status: Acute Assessment and plan: Continue Synthroid Qualifiers: Hypothyroidism type: unspecified Qualified Code(s): E03.9 - Hypothyroidism , unspecified - Subjective Interval history: Portal HTN, Ascites, Anemia, Cirrhosis, Pancreatitis, Small bowel obstruction, COPD, Diverticulitis, HTN, Agent [place] exposure, Osteoarthritis, PTSD, diabetes (type II), hyperlipidemia, and hypothyroidism. Confused, oriented in person and place, denies pain, unable to complete review of systems due to patient's mental status - Constitutional Vitals: Temp Pulse Resp BP Pulse Ox 98.0 F 94 18 118/74 94 01/05/17 06:42 01/05/17 06:42 01/05/17 06:42 01/05/17 06:42 01/05/17 06:42 General appearance: Present: disheveled, A&O X 2 - Head Head exam: Present: atraumatic, normocephalic - Eye Eye exam: Present: PERRL, conjuntiva pink, sclera anicteric Pupils: Present: PERRL - Neck Neck exam general surgery: Present: supple, trachea midline. Absent: lymphadenopathy - Respiratory Respiratory exam: Present: decreased breath sounds, CTAB. Absent: accessory muscle use, rales, rhonchi, wheezes - Cardiovascular Cardiovascular exam: Present: RRR, +S1, +S2. Absent: diastolic murmur, gallop, rubs, systolic murmur - GI/Abdominal GI/Abdominal exam: Present: distended, normal bowel sounds, soft, no peritoneal signs. Absent: tenderness - Extremities Exam Extremities exam: Present: warm, radial pulses palpable and symmetrical. Absent : calf tenderness, cyanotic, pedal edema - Neurological Exam Neurological exam: Present: CN II-XII intact, no focal deficits. Absent: oriented X3, pronater drift, facial droop, speech deficit - Skin Skin exam: Present: dry, intact Internal Medicine: Result - Labs CBC & Chem 7: 01/04/17 07:11 01/04/17 07:11 - ABG Interpretation ABG results: ABG ABG pH 7.35 pH Units (7.32-7.45) 01/02/17 23:50 ABG pCO2 42 mmHg (35-45) 01/02/17 23:50 ABG pO2 109 mmHg (85-104) H 01/02/17 23:50 ABG O2 Saturation 98 % (95-98) 01/02/17 23:50 Consult Discharge Plan - Plan Referrals: Fran Montero [Primary Care Provider] -
[2017-01-05] MEDS: Finasteride 5 MG TABLET PO SCH (09:50)
[2017-01-05] MEDS: Sucralfate 1 GM TABLET PO SCH ×3 (09:51→15:20)
[2017-01-05] MEDS: Gabapentin 300 MG CAPSULE PO SCH ×2 (09:51→15:20)
[2017-01-05] MEDS: Magnesium Oxide 400 MG TABLET PO SCH (09:51)
[2017-01-05 10:49] VITALS: BP 112/73
--- NOTE | 2017-01-05 12:25 | ENT - Procedure Note ---
Date of procedure: 01/05/17 Pre-op diagnosis: opacified right max sinus Post-op diagnosis: same Procedure: With patient's permission examined the nose with anterior rhinoscopy right side first and no pus or polyp noted. Applied topical afrin/lido pledget to right nose then inserted a flexible endoscope. Patient unable to cooperate for exam and turned head refusing the procedure. Discussed case with Dr. Kim, as patient is asymptomatic and the CT findings do not show bone erosion or nasal cavity soft tissue erosion the patient can follow up with the ENT clinic as an outpatient. Please schedule an appointment with Dr. Kim. Anesthesia: topical Surgeon: Jojo Jasso Estimated blood loss (cc): 0 Condition: stable
[2017-01-05] MEDS ORDERED: Acetaminophen 325 MG TABLET PO PRN (12:39)
--- NOTE | 2017-01-05 14:03 | Discharge Summary ---
Date of Encounter: 01/05/17 Time of Encounter: 14:01 - Discharge Diagnosis (1) Encephalopathy acute Priority: Primary Status: Acute Comments: Consider possible concussion versus worsening dementia, recently treated for hepatic encephalopathy due to cirrhosis (2) Right maxillary sinusitis Priority: Secondary Status: Acute (3) Thrombocytopenia Priority: Secondary Status: Acute (4) Cirrhosis of liver Priority: Secondary Status: Acute Qualifiers: Hepatic cirrhosis type: unspecified hepatic cirrhosis Ascites presence: without ascites Qualified Code(s): K74.60 - Unspecified cirrhosis of liver (5) Dementia Priority: Primary Status: Acute Qualifiers: Alzheimer's disease onset: unspecified onset Dementia behavioral disturbance: with behavioral disturbance Qualified Code(s): G30.8 - Other Alzheimer's disease; F02.81 - Dementia in other diseases classified elsewhere with behavioral disturbance; F02.81 - Dementia in other diseases classified elsewhere with behavioral disturbance; F02.81 - Dementia in other diseases classified elsewhere with behavioral disturbance (6) Diabetes mellitus Priority: Secondary Status: Chronic Qualifiers: Diabetes mellitus type: type 2 Diabetes mellitus complication status: without complication 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 Qualified Code(s): E11.9 - Type 2 diabetes mellitus without complications (7) HTN (hypertension) Priority: Secondary Status: Acute Qualifiers: Hypertension type: essential hypertension Qualified Code(s): I10 - Essential (primary) hypertension (8) Hypothyroidism Priority: Secondary Status: Acute Qualifiers: Hypothyroidism type: unspecified Qualified Code(s): E03.9 - Hypothyroidism , unspecified - Discharge Medications Prescriptions: Gabapentin [Neurontin] 300 mg PO TID #90 capsule Lactulose 20 gm PO DAILY 30 Days [facility] Medications: Acetaminophen [Tylenol] 650 mg PO TID PRN 01/02/17 [History] Baclofen [Lioresal] 10 mg PO TID PRN 01/02/17 [History] Dicyclomine [Bentyl] 20 mg PO TID PRN 01/02/17 [History] Doxazosin [Cardura] 1 mg PO HS 01/02/17 [History] Ferrous Sulfate [Iron] 325 mg PO BID 01/02/17 [History] Finasteride [Proscar] 20 mg PO DAILY 01/02/17 [History] Furosemide [Lasix] 20 mg PO DAILY 01/02/17 [History] Gemfibrozil [Lopid] 600 mg PO BIDWM 01/02/17 [History] Magnesium Oxide [Magnesium] 800 mg PO BID 01/02/17 [History] Metformin HCl [Fortamet] 500 mg PO DAILY 01/02/17 [History] OLANZapine [Zyprexa] 5 mg PO HS 01/02/17 [History] Pantoprazole Sodium [Protonix] 20 mg PO DAILY 01/02/17 [History] Peg 400/Hypromellose/Glycerin [Visine Tired Eye Relief Drop] 15 ml OP TID [History] Propranolol HCl 20 mg PO TID 01/02/17 [History] Ranitidine HCl [Acid Human Resources Executive Assistant] 150 mg PO BID 01/02/17 [History] Levothyroxine Sodium [Levoxyl] 50 mcg PO DAILY 01/03/17 [History] Sucralfate [Carafate] 1 gm PO QIDAC 01/03/17 [History] Topiramate [Topamax] 25 mg PO HS 01/03/17 [History] Gabapentin [Neurontin] 300 mg PO TID #90 capsule 01/05/17 [Rx] Lactulose 20 gm PO DAILY 30 Days udc 01/05/17 [Rx] Allergies/Adverse Reactions: 3 Allergy/AdvReac Type Severity Reaction Status Date / Time amitriptyline Allergy Drowsy Verified 01/03/17 09:35 citalopram Allergy Hallucinati Verified 01/02/17 22:49 ng fluoxetine Allergy Hallucinati Verified 01/02/17 22:49 ng morphine AdvReac nausea/vomi Verified 01/03/17 09:33 ting primidone AdvReac Nausea Verified 01/03/17 09:35 tramadol AdvReac Drowsy Verified 01/03/17 09:33 Zolpidem AdvReac Hallucinati Verified 01/03/17 09:35 ng Procedures/tests Complete & Pending: Procedures Performed prior 72 hours Category Date Time Status CT sinus wo con [CT] Stat Cat Scan 01/03/17 14:53 Completed Date of admission: 01/02/17 23:27 Primary care physician: JosuéConversion Provider Consults: 01/03/17 14:47 Consult to ENT [CONS] Routine Consulting Provider: ENT Kourtney Reason for Consult: right sinus fungal infection Call Completed: Yes 01/05/17 09:48 Consult to Occupational Therapy [CONS] Routine Comment: Evaluate, develop and implement POC Reason for Consult: eval for rehab Consult to Physical Therapy [CONS] Routine Comment: Evaluate, develop and implement POC Reason for Consult: eval for rehab - Patient Status Disposition: Home Health Service Condition: Fair Overall status at discharge: patient is back to baseline - Discharge Instructions Follow Up With: Fran Montero [Primary Care Provider] - Additional Instructions: Follow-up with primary care physician within the next 7 days. Follow-up with ENT within the next 7 days. Continue lactulose, decreased dose of gabapentin down to 300 mg 3 times a day. Hold topiramate if sedated - Diet and Activity Activity: increase activity as tolerated Diet: low fat, low cholesterol Hospital course: Mr. Duran is a 71 year old male past medical history of dementia, HTN, DM II not insulin-dependent, Portal HTN, Ascites, Anemia, Cirrhosis, Pancreatitis, Small bowel obstruction, COPD not oxygen dependent, Diverticulitis, HTN, Agent [place] exposure, Osteoarthritis, PTSD, diabetes (type II), hyperlipidemia, and hypothyroidism. Who presented to [facility] with acute mental status change and decreased level of consciousness. The patient was recently admitted and treated at [facility] for hepatic encephalopathy and cirrhosis. Patient was obtunded. The patient has baseline dementia, his awoke on the morning of his admission and found furniture scattered throughout the house and the patient missing. She found him outside sleeping on the porch. Upon arrival to [facility] ED it was reported to the RN that the patient was alert and oriented. However, at some time throughout the stay he became agitated and combative. He was given 2mg Ativan and sent to [facility]. Workup from [facility] included CT of head which found moderate generalized cerebral and cerebellar atrophy, and complete opacification of right maxillary sinus suspicious for fungal infection. Because the patient was found down a CT of the C-spine was obtained and no fractures were noted. X-ray pelvis and x-ray of left elbow obtained noting no fractures. Chest X-ray negative for acute findings. He is being admitted for further monitoring and evaluation. During his hospitalization patient's mental status improved back to his baseline with the use of lactulose although his ammonia level was only 42. New CT scan of the sinuses showed (performed in [place]): chronic right maxillary sinusitis with partially calcified soft tissue raising the possibility of fungal infection. ENT consulted, and attempted to perform a flexible endoscopy. Patient was unable to cooperate for exam and turned head refusing the procedure. The nose was examined with anterior rhinoscopy the right side, no polyps or pus were noted. No voriconazole or other antifungal for now was recommended for now by ENT, the patient will follow-up with Dr. Lai as an outpatient. Because of the patient's history of cirrhosis and encephalopathy we will Use a low dose of lactulose as the patient apparently has chronic diarrhea from short bowel. Decreased dose of gabapentin. Fall precautions. Family prefers to take the patient home with home services, risks explained. - Time Spent with Patient Total time spent providing and/or coordinating discharge services: Greater than 30 minutes (40 min) - Constitutional Vitals: Temp Pulse Resp BP Pulse Ox 97.8 F 55 18 112/73 94 01/05/17 10:47 01/05/17 10:47 01/05/17 10:47 01/05/17 10:47 01/05/17 10:47 General appearance: Present: disheveled, A&O X 2 - Head Head exam: Present: atraumatic, normocephalic - Eye Eye exam: Present: PERRL, conjuntiva pink, sclera anicteric Pupils: Present: PERRL - Neck Neck exam general surgery: Present: supple, trachea midline. Absent: lymphadenopathy - Respiratory Respiratory exam: Present: CTAB. Absent: accessory muscle use, rales, rhonchi, wheezes - Cardiovascular Cardiovascular exam: Present: RRR, +S1, +S2. Absent: diastolic murmur, gallop, rubs, systolic murmur - GI/Abdominal GI/Abdominal exam: Present: normal bowel sounds, soft, no peritoneal signs. Absent: distended, tenderness - Extremities Exam Extremities exam: Present: warm, radial pulses palpable and symmetrical. Absent : calf tenderness, cyanotic, pedal edema - Neurological Exam Neurological exam: Present: CN II-XII intact, no focal deficits. Absent: oriented X3, pronater drift, facial droop, speech deficit - Skin Skin exam: Present: dry, intact
--- NOTE | 2017-01-05 14:18 | Physician Discharge Referral ---
Home Health/Hosp Referral Info Transfer to: Home Health Provider in Charge Post Discharge: PCP - Diagnosis (1) Encephalopathy acute Status: Acute (2) Right maxillary sinusitis Status: Acute (3) Thrombocytopenia Status: Acute (4) Cirrhosis of liver Status: Acute (5) Dementia Status: Acute (6) Diabetes mellitus Status: Chronic (7) HTN (hypertension) Status: Acute (8) Hypothyroidism Status: Acute - Respiratory Orders Smoking Cessation: Smoking cessation has been advised. For more information, call the [place] Tobacco Quit Line at 5-194-JJCM-NOW. - Services Needed Following services are medically necessary services: Nursing, Home Health Aide, Physical Therapy, Occupational Therapy Home Care Orders: Follow-up with primary care physician within the next 7 days. Follow-up with ENT within the next 7 days. Continue lactulose, decreased dose of gabapentin down to 300 mg 3 times a day. Hold topiramate if sedated - Transfer Medications Prescriptions: Gabapentin [Neurontin] 300 mg PO TID #90 capsule Lactulose 20 gm PO DAILY 30 Days [facility] [place] Home Medications: Acetaminophen [Tylenol] 650 mg PO TID PRN 01/02/17 [History] Baclofen [Lioresal] 10 mg PO TID PRN 01/02/17 [History] Dicyclomine [Bentyl] 20 mg PO TID PRN 01/02/17 [History] Doxazosin [Cardura] 1 mg PO HS 01/02/17 [History] Ferrous Sulfate [Iron] 325 mg PO BID 01/02/17 [History] Finasteride [Proscar] 20 mg PO DAILY 01/02/17 [History] Furosemide [Lasix] 20 mg PO DAILY 01/02/17 [History] Gemfibrozil [Lopid] 600 mg PO BIDWM 01/02/17 [History] Magnesium Oxide [Magnesium] 800 mg PO BID 01/02/17 [History] Metformin HCl [Fortamet] 500 mg PO DAILY 01/02/17 [History] OLANZapine [Zyprexa] 5 mg PO HS 01/02/17 [History] Pantoprazole Sodium [Protonix] 20 mg PO DAILY 01/02/17 [History] Peg 400/Hypromellose/Glycerin [Visine Tired Eye Relief Drop] 15 ml OP TID [History] Propranolol HCl 20 mg PO TID 01/02/17 [History] Ranitidine HCl [Acid Heel Breaster] 150 mg PO BID 01/02/17 [History] Levothyroxine Sodium [Levoxyl] 50 mcg PO DAILY 01/03/17 [History] Sucralfate [Carafate] 1 gm PO QIDAC 01/03/17 [History] Topiramate [Topamax] 25 mg PO HS 01/03/17 [History] Gabapentin [Neurontin] 300 mg PO TID #90 capsule 01/05/17 [Rx] Lactulose 20 gm PO DAILY 30 Days udc 01/05/17 [Rx] Allergies/Adverse Reactions: 3 Allergy/AdvReac Type Severity Reaction Status Date / Time amitriptyline Allergy Drowsy Verified 01/03/17 09:35 citalopram Allergy Hallucinati Verified 01/02/17 22:49 ng fluoxetine Allergy Hallucinati Verified 01/02/17 22:49 ng morphine AdvReac nausea/vomi Verified 01/03/17 09:33 ting primidone AdvReac Nausea Verified 01/03/17 09:35 tramadol AdvReac Drowsy Verified 01/03/17 09:33 Zolpidem AdvReac Hallucinati Verified 01/03/17 09:35 ng Certification: Further, I certify that my clinical findings support that this patient is homebound (i.e. absences from home require considerable and taxing effort and are for medical reasons or worship services or infrequently or short duration when for other reasons) because: Homebound Reason: Patient requires assistance of a person or device to safely leave home Attestation: My signature below is to certify that this patient is under my care and that I, or nurse practitioner, or a physician's executive administrative assistant working with me, has a face-to -face encounter with this patient.
== END 2017-01-05 15:51 | disposition home health service (06) | DRG 442 ==
LOC: 2ANU
PROVIDERS: ADMIT Hospitalist; ATTEND Internal Medicine

== ENCOUNTER 2019-04-18 20:54 | Inpatient (IN) ==
[2019-04-18] MEDS ORDERED: Isovue-370 500 ML BOTTLE IVP ONE (21:12)
[2019-04-18] MEDS ORDERED: cefTRIAXone 2,000 MG in Water for inj. (sterile) 20 ML IVP ONE (21:19)
[2019-04-18 21:46] LABS: Hemoglobin 10.9 g/dL (12.9-16.9); Red Cell Distribution Width 15.3 % (11.5-14.5)
[2019-04-18 21:48] LABS: Basophils % 0.6 %; Eosinophils # 0.1 K/mcL (0.0-0.6); Eosinophils % 1.9 %; Hematocrit 30.8 % (37.5-50.1); Immature Granulocytes % 3.9 % (0-4); Immature Platelets 6.6 % (1.1-6.1); Lymphocytes # 0.7 K/mcL (0.6-4.6); Lymphocytes % 10.4 %; Mean Corpuscular HGB Conc 35.4 g/dL (31.6-35.5); Monocytes # 0.6 K/mcL (0.0-1.3); Monocytes % 8.7 %; Nucleated Red Blood Cells 1.3 /100 WBC (0); Red Blood Count 3.21 M/mcL (4.19-5.50); Segmented Neutrophils % 74.5 %; White Blood Count 6.9 K/mcL (4.3-11.1)
[2019-04-18 21:49] LABS: Neutrophils # 5.1 K/mcL (1.6-8.9); Platelet Count 58 K/mcL (140-400)
[2019-04-18 22:09] LABS: Alanine Aminotransferase 8 Units/L (7-52); Albumin 3.8 g/dL (3.5-5.7); Albumin/Globulin Ratio 1.3 (1.1-2.2); Alkaline Phosphatase 73 Units/L (34-104); Aspartate Amino Transferase 18 Units/L (13-39); BUN/Creatinine Ratio 17 (6-26); Bilirubin,Direct 0.3 mg/dL (0.0-0.2); Bilirubin,Indirect 0.4 mg/dL (0.0-1.0); Bilirubin,Total 0.7 mg/dL (0.3-1.0); Blood Urea Nitrogen 19 mg/dL (8-23); Calcium 10.3 mg/dL (8.6-10.3); Carbon Dioxide 20 mEq/L (23-29); Chloride 101 mEq/L (98-107); Globulin 2.9 g/dL (2.4-3.5); Glucose 132 mg/dL (70-105); Lipase 62 Units/L (11-82); Osmolality,Calculated 296 (280-300); Potassium 4.1 mEq/L (3.5-5.1); Sodium 141 mEq/L (136-145); Total Protein 6.7 g/dL (6.4-8.9); Troponin I < 0.03 ng/mL (< 0.04); eGFR For African Americans > 60 (> 60); eGFR For Non-African Americans > 60 (> 60)
[2019-04-18 22:18] LABS: INR 1.1; Prothrombin Time 12.9 Seconds (9.4-12.1)
[2019-04-18 22:20] LABS: Activated Partial Thrombo Time 38.7 Seconds (26.0-36.0)
[2019-04-18 22:58] LABS: Bilirubin,Urine Small (Negative); Blood,Urine Large (Negative); Clarity,Urine Clear (Clear); Color,Urine Dark Yellow (Yellow); Glucose,Urine (UA) Normal (Normal); Ketones,Urine Trace mg/dL (Negative); Leukocyte Esterase,Urine Small (Negative); Nitrite,Urine Negative (Negative); PH,Urine 5.5 pH Units (5.0-8.0); Protein,Urine Trace mg/dL (Neg-Trace); Specific Gravity,Urine > 1.030 (1.010-1.025); Urobilinogen,Urine Normal (Normal)
[2019-04-18 22:59] LABS: Bacteria,Urine None Seen per hpf (None-Few); Hyaline Casts,Urine None Seen per lpf (None-Few); RBC,Urine 15-30 per hpf (0-3); Squamous Epithelial Cell,Urine Many per lpf (None-Few); WBC,Urine 0-3 per hpf (0-3)
[2019-04-19] MEDS ORDERED: Naloxone 0.4 MG/ML INJ IVP PRN (00:34)
[2019-04-19] MEDS: 0.9 % Sodium Chloride 1,000 ML IVC SCH ×2 (00:42→17:23)
[2019-04-19 02:20] LABS: BUN/Creatinine Ratio 19 (6-26); Blood Urea Nitrogen 18 mg/dL (8-23); Calcium 9.8 mg/dL (8.6-10.3); Carbon Dioxide 17 mEq/L (23-29); Chloride 104 mEq/L (98-107); Glucose 108 mg/dL (70-105); Osmolality,Calculated 292 (280-300); Potassium 4.1 mEq/L (3.5-5.1); Sodium 140 mEq/L (136-145); eGFR For African Americans > 60 (> 60); eGFR For Non-African Americans > 60 (> 60)
[2019-04-19 06:48] LABS: Basophils # 0.1 K/mcL (0.0-0.2); Eosinophils # 0.1 K/mcL (0.0-0.6); Eosinophils % 1.6 %; Hematocrit 29.5 % (37.5-50.1); Immature Granulocytes % 2.9 % (0-4); Lymphocytes # 0.8 K/mcL (0.6-4.6); Lymphocytes % 16.3 %; Mean Corpuscular HGB Conc 33.9 g/dL (31.6-35.5); Mean Corpuscular Hemoglobin 33.8 pg (28.0-33.3); Mean Corpuscular Volume 99.7 fL (83.0-100.0); Monocytes # 0.5 K/mcL (0.0-1.3); Monocytes % 9.7 %; Red Blood Count 2.96 M/mcL (4.19-5.50); Red Cell Distribution Width 15.3 % (11.5-14.5); Segmented Neutrophils % 68.5 %; White Blood Count 4.9 K/mcL (4.3-11.1)
[2019-04-19 06:50] LABS: Neutrophils # 3.4 K/mcL (1.6-8.9); Platelet Count 51 K/mcL (140-400)
[2019-04-19] MEDS: Pregabalin 75 MG CAPSULE PO SCH ×2 (08:42→20:55)
[2019-04-19] MEDS: Finasteride 5 MG TABLET PO SCH (08:42)
[2019-04-19] MEDS: Furosemide 20 MG TABLET PO SCH (08:42)
[2019-04-19] MEDS: Cholecalciferol (D-3) 1,000 UNIT (25MCG) TABLET PO SCH (08:43)
[2019-04-19] MEDS ORDERED: *HR* OxyCODONE Immed Rel 5 MG TABLET PO ONE (16:38)
[2019-04-19] MEDS ORDERED: Lactulose Oral Soln 20 GM/30 ML UDC PO ONE (17:15)
[2019-04-19] MEDS: Lactulose Oral Soln 20 GM/30 ML UDC PO SCH ×3 (20:55→23:30)
[2019-04-19] MEDS: cefTRIAXone 2,000 MG in Water for inj. (sterile) 20 ML IVP SCH (20:55)
[2019-04-19] MEDS: QUEtiapine Fumarate 25 MG TABLET PO SCH (20:55)
[2019-04-19] MEDS: Melatonin 3 MG TABLET PO SCH (20:55)
[2019-04-20] MEDS: 0.9 % Sodium Chloride 1,000 ML IVC SCH (01:38)
[2019-04-20 05:24] LABS: Hematocrit 26.8 % (37.5-50.1); Hemoglobin 9.3 g/dL (12.9-16.9); Mean Corpuscular HGB Conc 34.7 g/dL (31.6-35.5)
[2019-04-20 05:26] LABS: Eosinophils # 0.1 K/mcL (0.0-0.6); Immature Platelets 6.3 % (1.1-6.1); Mean Corpuscular Hemoglobin 33.3 pg (28.0-33.3); Mean Corpuscular Volume 96.1 fL (83.0-100.0); Mean Platelet Volume 11.4 fL (9.4-12.4); Nucleated Red Blood Cells 1.1 /100 WBC (0); Red Blood Count 2.79 M/mcL (4.19-5.50); Red Cell Distribution Width 15.5 % (11.5-14.5); White Blood Count 3.5 K/mcL (4.3-11.1)
[2019-04-20 05:29] LABS: Platelet Count 44 K/mcL (140-400)
[2019-04-20 05:42] LABS: BUN/Creatinine Ratio 17 (6-26); Blood Urea Nitrogen 16 mg/dL (8-23); Calcium 8.8 mg/dL (8.6-10.3); Carbon Dioxide 22 mEq/L (23-29); Chloride 108 mEq/L (98-107); Glucose 119 mg/dL (70-105); Osmolality,Calculated 302 (280-300); Potassium 3.5 mEq/L (3.5-5.1); Sodium 145 mEq/L (136-145); eGFR For African Americans > 60 (> 60); eGFR For Non-African Americans > 60 (> 60)
[2019-04-20 06:09] LABS: Anisocytosis 1+ (Not Present); Neutrophils # 2.4 K/mcL (1.6-8.9)
[2019-04-20 06:10] LABS: Macrocytosis Present (Not Present); Platelet Estimate Marked Decrease (Normal); Reactive Lymphocytes Present (Not Present)
[2019-04-20] MEDS: Cholecalciferol (D-3) 1,000 UNIT (25MCG) TABLET PO SCH (07:55)
[2019-04-20] MEDS: Finasteride 5 MG TABLET PO SCH (07:55)
[2019-04-20] MEDS: Furosemide 20 MG TABLET PO SCH (07:55)
[2019-04-20] MEDS: QUEtiapine Fumarate 25 MG TABLET PO SCH ×2 (07:55→20:29)
[2019-04-20] MEDS: Pregabalin 75 MG CAPSULE PO SCH ×2 (07:55→20:29)
[2019-04-20] MEDS: Lactulose Oral Soln 20 GM/30 ML UDC PO SCH ×2 (08:01→20:29)
[2019-04-20] MEDS ORDERED: *HR* HYDROcodone/Acet 5/325 mg TABLET PO PRN (11:11)
[2019-04-20] MEDS ORDERED: Dextrose Gel 15 GM/37.5 ML TUBE PO PRN ×2 (14:30)
[2019-04-20] MEDS ORDERED: D5% in Water 1,000 ML IVC PRN (14:30)
[2019-04-20] MEDS ORDERED: *HR* Dextrose 50 % in Water (Syg) 50 ML SYRINGE IVP PRN (14:30)
[2019-04-20] MEDS: Insulin LISPRO 300 UNITS/3 ML VIAL SQ SCH (17:07)
[2019-04-20] MEDS: Melatonin 3 MG TABLET PO SCH (20:29)
[2019-04-20] MEDS: cefTRIAXone 2,000 MG in Water for inj. (sterile) 20 ML IVP SCH (20:29)
[2019-04-21 01:28] LABS: Hematocrit 28.5 % (37.5-50.1); Hemoglobin 9.7 g/dL (12.9-16.9); Immature Platelets 6.2 % (1.1-6.1); Mean Corpuscular Hemoglobin 33.4 pg (28.0-33.3); Mean Corpuscular Volume 98.3 fL (83.0-100.0); Mean Platelet Volume 11.2 fL (9.4-12.4); Monocytes # 0.4 K/mcL (0.0-1.3); Nucleated Red Blood Cells 1.7 /100 WBC (0); Red Cell Distribution Width 15.9 % (11.5-14.5); White Blood Count 3.5 K/mcL (4.3-11.1)
[2019-04-21 01:40] LABS: Platelet Count 48 K/mcL (140-400)
[2019-04-21 01:43] LABS: BUN/Creatinine Ratio 16 (6-26); Blood Urea Nitrogen 16 mg/dL (8-23); Carbon Dioxide 22 mEq/L (23-29); Chloride 112 mEq/L (98-107); Glucose 118 mg/dL (70-105); Osmolality,Calculated 300 (280-300); Potassium 3.6 mEq/L (3.5-5.1); Sodium 144 mEq/L (136-145); eGFR For African Americans > 60 (> 60); eGFR For Non-African Americans > 60 (> 60)
[2019-04-21 01:49] LABS: Magnesium 1.6 mg/dL (1.6-2.6); Phosphorous 2.8 mg/dL (2.7-4.5)
[2019-04-21 01:58] LABS: Thyroid Stimulating Hormone 7.738 mcIU/mL (0.340-5.600)
[2019-04-21 02:22] LABS: Anisocytosis 1+ (Not Present); Lymphocytes # 0.5 K/mcL (0.6-4.6); Neutrophils # 2.7 K/mcL (1.6-8.9)
[2019-04-21 02:23] LABS: Macrocytosis Present (Not Present); Platelet Estimate Marked Decrease (Normal); Polychromasia 1+ (Not Present); Reactive Lymphocytes Present (Not Present)
[2019-04-21] MEDS: Insulin LISPRO 300 UNITS/3 ML VIAL SQ SCH ×3 (08:06→18:07)
[2019-04-21] MEDS: Lactulose Oral Soln 20 GM/30 ML UDC PO SCH ×3 (08:07→20:32)
[2019-04-21] MEDS: Pregabalin 75 MG CAPSULE PO SCH ×2 (08:07→20:25)
[2019-04-21] MEDS: Cholecalciferol (D-3) 1,000 UNIT (25MCG) TABLET PO SCH (08:08)
[2019-04-21] MEDS: Furosemide 20 MG TABLET PO SCH (08:09)
[2019-04-21] MEDS: QUEtiapine Fumarate 25 MG TABLET PO SCH ×2 (08:10→22:07)
[2019-04-21] MEDS: Finasteride 5 MG TABLET PO SCH (08:10)
[2019-04-21] MEDS ORDERED: Ondansetron 4 MG/2 ML VIAL IVP PRN (10:02)
[2019-04-21] MEDS: 0.9 % Sodium Chloride 1,000 ML IVC SCH ×2 (14:22)
[2019-04-21] MEDS ORDERED: Artificial Tears SOLN 15 ML BOTTLE BOTH EYES PRN (15:35)
[2019-04-21] MEDS: Melatonin 3 MG TABLET PO SCH (20:25)
[2019-04-21] MEDS: Budesonide/Formoterol 160/4.5 1 PUFF INH IH SCH (22:40)
[2019-04-22 03:09] LABS: BUN/Creatinine Ratio 16 (6-26); Blood Urea Nitrogen 14 mg/dL (8-23); Calcium 9.3 mg/dL (8.6-10.3); Carbon Dioxide 21 mEq/L (23-29); Chloride 115 mEq/L (98-107); Glucose 118 mg/dL (70-105); Magnesium 1.7 mg/dL (1.6-2.6); Osmolality,Calculated 304 (280-300); Phosphorous 3.9 mg/dL (2.7-4.5); Potassium 3.8 mEq/L (3.5-5.1); Sodium 146 mEq/L (136-145); eGFR For African Americans > 60 (> 60); eGFR For Non-African Americans > 60 (> 60)
[2019-04-22 05:47] LABS: Eosinophils % 0.9 %; Nucleated Red Blood Cells 1.4 /100 WBC (0)
[2019-04-22 05:49] LABS: Basophils % 0.5 %; Hematocrit 28.7 % (37.5-50.1); Hemoglobin 9.6 g/dL (12.9-16.9); Immature Granulocytes % 4.2 % (0-4); Immature Platelets 7.1 % (1.1-6.1); Lymphocytes # 0.8 K/mcL (0.6-4.6); Lymphocytes % 19.2 %; Mean Corpuscular HGB Conc 33.4 g/dL (31.6-35.5); Mean Corpuscular Hemoglobin 33.6 pg (28.0-33.3); Mean Corpuscular Volume 100.3 fL (83.0-100.0); Mean Platelet Volume 11.8 fL (9.4-12.4); Monocytes # 0.7 K/mcL (0.0-1.3); Neutrophils # 2.6 K/mcL (1.6-8.9); Red Blood Count 2.86 M/mcL (4.19-5.50); Red Cell Distribution Width 16.7 % (11.5-14.5); Segmented Neutrophils % 60.2 %; White Blood Count 4.3 K/mcL (4.3-11.1)
[2019-04-22 05:50] LABS: Platelet Count 50 K/mcL (140-400)
[2019-04-22 05:51] LABS: Platelet Estimate Marked Decrease (Normal)
[2019-04-22] MEDS: Budesonide/Formoterol 160/4.5 1 PUFF INH IH SCH (07:36)
[2019-04-22] MEDS: Insulin LISPRO 300 UNITS/3 ML VIAL SQ SCH (07:50)
[2019-04-22] MEDS ORDERED: *HR* OxyCODONE Immed Rel 5 MG TABLET PO PRN (08:56)
[2019-04-22] MEDS ORDERED: Spironolactone 25 MG TABLET PO SCH ×2 (09:00→10:15)
[2019-04-22] MEDS: Finasteride 5 MG TABLET PO SCH (10:33)
[2019-04-22] MEDS: Lactulose Oral Soln 20 GM/30 ML UDC PO SCH (10:34)
[2019-04-22] MEDS: Pregabalin 75 MG CAPSULE PO SCH (10:34)
[2019-04-22] MEDS: QUEtiapine Fumarate 25 MG TABLET PO SCH (10:34)
[2019-04-22] MEDS: Furosemide 20 MG TABLET PO SCH (10:34)
[2019-04-22] MEDS: Cholecalciferol (D-3) 1,000 UNIT (25MCG) TABLET PO SCH (10:34)
[2019-04-22 11:24] VITALS: BP 120/66
[2019-04-23] MEDS ORDERED: Spironolactone 25 MG TABLET PO SCH (09:00)
== END 2019-04-22 11:45 | disposition home health service (06) | DRG 442 ==
LOC: 2NNU 20:54 → EMEROOARM 20:54 → SUATTDRO 04-19 00:49 → 2NNU 04-19 00:55 → 3ANU 04-21 14:32
PROVIDERS: ADMIT Student in an Organized Health Care Education/Training Program; ATTEND Internal Medicine